=== PATIENT | female | born 1960 | race Caucasian/White ===

== ENCOUNTER 2022-02-09 10:13 | Inpatient (IN) ==
--- NOTE | 2022-01-10 15:37 | PAT Medication Instructions ---
Medication Instructions Date of Service January 10, 2022 Home Medications levothyroxine 25 mcg tablet 25 mcg PO QAM rosuvastatin 5 mg tablet 5 mg PO 3XWK Continue as directed rosuvastatin 5 mg tablet 5 mg PO 3XWK Take morning of surgery With a small sip of water, OTHERWISE NOTHING TO EAT OR DRINK AFTER MIDNIGHT: levothyroxine 25 mcg tablet 25 mcg PO QAM Other Notes If you have any questions please call us at [phone] or [phone] or [phone] or [phone]
--- NOTE | 2022-01-16 09:41 | Anesthesiology Consultation ---
Date of Service January 16, 2022 Assessment & Plan (1) Encounter for pre-operative examination: COVID screening: Per assessment on 01/16: No known COVID-19 positive contacts or current COVID-19 related symptoms. Travel screen negative. At surgeon discretion if preop Covid testing being done. Chart Review Chart Review: Acceptable Risk for Surgery and Patient seen in Pre Admission Testing Teaching & Discussion Pre-Anesthesia Teaching/Discussion Notes: Instructed NPO after midnight before surgery,except medications with 15 cc of water. Medication instructions provided according to the PAT guidelines. History Surgery Operation Date: 02/09/22 10:05 Proposed Procedures p L4-L5 Revision Decompression and Fusion, Spinal Cord Monitoring - Felton Arteaga, Height/Weight Height: 5 ft 2 in Weight: 59.6 kg Allergies Allergy/AdvReac Type Severity Reaction Status Date / Time sumatriptan [From Imitrex] Allergy Severe Anaphylaxis Verified 01/10/22 11:24 Sulfa (Sulfonamide Allergy Intermediate Swelling Verified 01/16/22 08:42 Antibiotics) and "sunburn-like" redness Medications Home Medications Medication Instructions Recorded Confirmed Last Taken levothyroxine 25 mcg tablet 25 mcg PO QAM 01/10/22 01/10/22 Unknown rosuvastatin 5 mg tablet 5 mg PO 3XWK 01/10/22 01/10/22 Unknown Past Medical History Medical History (Updated 01/16/22 @ 09:53 by Shanelle Jay) Crohns disease Stable Hyperlipidemia Hypothyroidism Ocular migraine Tinnitus of right ear Exercise / Class Metabolic Activity II 4-5 Yardwork/Stairs/Walk up hill Past Family History Family History Other No family history of adverse response to anesthesia Past Surgical History Surgical History History of bilateral tubal ligation History of colonoscopy History of esophagogastroduodenoscopy (EGD) History of foot surgery left--cyst removal History of fusion of cervical spine normal ROM per pt History of lumbar surgery bone spur removal History of toe surgery left foot big toe joint surgery (+ hardware) History of wisdom tooth extraction Past Anesthesia History No Hx of Anesthesia Complications and No Family Hx of Anesthesia Complications History of PONV No Hx of PONV and Hx of Motion Sickness (Mild) Social History Smoking Status: Never smoker Do You Dip or Chew Tobacco: No Hx Alcohol Use: No Hx Substance Use: No substance use type: does not use Review of Systems Rare palpitations (hx PVCs/PACs noted on holter monitor). Patient denies chest pain, shortness of breath, dyspnea on exertion, reflux, cough, wheezing. Physical Exam Vital Signs VITALS BP 152/75 P 79 TEMP 98.1 SP02 99%RA RESP 16 PHYSICAL Full cervical extension range of motion. Full TMJ range of motion. TMD 4 finger breaths Mallampati Score 2 Dentition: missing molars/side Lungs: clear throughout to auscultation Cardiac: regular rate and rhythm, no murmurs noted Spine: normal Carotid arteries: negative bruit Extremities: no edema Lab Results Anesthesia Preop Results Results Anesthesia Widget: WBC 5.36 K/ul (4.8-10.8) 01/16/22 Hgb 13.9 g/dl (12.0-16.0) 01/16/22 Hct 40.6 % (34.1-44.9) 01/16/22 Plt 335 K/uL (130-400) 01/16/22 Na 139 mmol/L (136-145) 01/16/22 K 4.3 mmol/L (3.5-5.1) 01/16/22 Cl 102 mmol/L (98-107) 01/16/22 CO2 29 mmol/L (21-32) 01/16/22 BUN 13 mg/dl (6-23) 01/16/22 Creat 0.65 mg/dl (0.6-1.2) 01/16/22 Glucose Level 100 mg/dl (70-99(Fasting)) H 01/16/22 PT 10.9 Seconds (9.0-12.0) 01/16/22 PTT 25.7 Seconds (21.0-31.0) 01/16/22 INR 1.0 (0.9-1.1) 01/16/22 Urine Color Yellow 01/16/22 Urine Appearance Clear (Clear) 01/16/22 Urine pH 5.0 (4.5-7.5) 01/16/22 Urine Specific [place] 1.006 (1.000-1.030) 01/16/22 Urine Protein Negative (Negative) 01/16/22 Urine Glucose (UA) Negative (Negative) 01/16/22 Urine Ketones Negative (Negative) 01/16/22 Urine Blood Negative (Negative) 01/16/22 Urine Nitrite Negative (Negative) 01/16/22 Urine Bilirubin Negative (Negative) 01/16/22 Urine Urobilinogen Negative (Negative) 01/16/22 Urine Leukocyte Esterase Negative (Negative) 01/16/22 Blood Type A Positive 01/16/22 Antibody Screen NEGATIVE 01/16/22 Testing Electrocardiogram Date: 01/16/22 NSR at 67bpm. LAD. Chest X-Ray Date: 01/16/22 FINDINGS: Cardiomediastinal and hilar silhouettes are within normal limits. No pneumothorax, pleural effusion, airspace consolidation or overt pulmonary edema. Degenerative changes of the shoulders and spine. Upper thoracic levoscoliosis. Cervical spinal fusion hardware. IMPRESSION: No acute process. Stress Test Date: 06/04/17 Stress EKG/echo negative for myocardial ischemia at 108% MPHR. 7 METS. Rest echo EF 55%. COVID-19 Risk Screen Screening Information COVID-19 Screen Date: 01/16/22 Exposure 21 Days Family/Household +COVID Last 21 Days: No Exposure 10 Days Any COVID Exposure Last 10 Days: No Symptoms Last 10 Days Experienced COVID Sx Last 10 Days: No + COVID 0-90 Days COVID + in Last 0-90 Days: No
[~2022-02-09 10:13] MED LIST: ACETAMINOPHEN 500 MG TAB PO SCH; GABAPENTIN 600 MG DOSE PO SCH; LR 15ML/HR IV SCH; ceFAZolin 2000MG 2,000 MG/15 ML SYR IV SCH
[2022-02-09] MEDS ORDERED: ROCURONIUM BROMIDE 10 MG/ML 5 ML VIAL IV ONE (10:42)
[2022-02-09] MEDS ORDERED: fentaNYL citrate 100 MCG/2 ML VIAL ONE (10:42)
[2022-02-09] MEDS ORDERED: HYDROmorphone INJ 2 MG/ML SYR/VIAL ONE (10:42)
[2022-02-09] MEDS ORDERED: LIDOCAINE 2% MPF LOCAL 5 ML VIAL INFIL ONE (10:42)
[2022-02-09] MEDS ORDERED: MIDAZOLAM HCL 1 MG/ML 2ML VIAL ONE (10:42)
[2022-02-09] MEDS ORDERED: PROPOFOL IV EMULSION 10 MG/ML 20 ML VIAL IV ONE (10:42)
[2022-02-09] MEDS ORDERED: DEXAMETHASONE SOD INJ 4 MG/ML VIAL ONE (10:42)
[2022-02-09] MEDS ORDERED: ONDANSETRON INJ 2 MG/ML 2 ML VIAL ONE (10:42)
[2022-02-09] MEDS ORDERED: ATROPINE SULFATE 0.1 MG/ML 10ML SYR IV PRN (11:02)
[2022-02-09] MEDS ORDERED: PROMETHAZINE HCL 6.25 MG in SODIUM CHLORIDE 0.9% 50 ML IV PRN (11:02)
[2022-02-09] MEDS ORDERED: ONDANSETRON INJ 2 MG/ML 2 ML VIAL IV PRN ×2 (11:02→16:46)
[2022-02-09] MEDS ORDERED: ePHEDrine sulfate 50 MG/ML AMP IV PRN (11:02)
[2022-02-09] MEDS ORDERED: HYDROmorphone INJ 1 MG/ML SYRINGE IV PRN ×2 (11:02→16:46)
[2022-02-09] MEDS ORDERED: fentaNYL citrate 100 MCG/2 ML VIAL IV PRN (11:02)
--- NOTE | 2022-02-09 11:48 | History & Physical Bridge Note ---
Date of Service February 09, 2022 History & Physical Bridge Note I have examined the patient, reviewed the History & Physical and in the interval since the performance of the History & Physical I have noted the following changes of clinical significance: no changes noted
--- NOTE | 2022-02-09 11:50 | History & Physical Report ---
Date of Service February 09, 2022 Assessment & Plan (1) Neurogenic claudication due to lumbar spinal stenosis: Plan: L4-L5 revision decompression and fusion, possible L3-L4 History of Present Illness Chief Complaint: Back and leg pain Primary Care Provider: Michelle Matthew PA-C This is a 61-year-old female who presents with chronic chest and back and leg pain During such course of nonoperative care is here for surgical invention. Allergies Allergy/AdvReac Type Severity Reaction Status Date / Time sumatriptan [From Imitrex] Allergy Severe Anaphylaxis Verified 02/09/22 10:52 Sulfa (Sulfonamide Allergy Intermediate Swelling Verified 02/09/22 10:52 Antibiotics) and "sunburn-like" redness Home Medications Medication Instructions Recorded Confirmed Type levothyroxine 25 mcg tablet 25 mcg PO QAM 01/10/22 02/09/22 History rosuvastatin 5 mg tablet 5 mg PO 3XWK 01/10/22 02/09/22 History Past Med/Surg History Medical History (Updated 02/09/22 @ 11:49 by Felton Arteaga DO) Crohns disease Stable Hyperlipidemia Hypothyroidism Ocular migraine Tinnitus of right ear Surgical History History of bilateral tubal ligation History of colonoscopy History of esophagogastroduodenoscopy (EGD) History of foot surgery left--cyst removal History of fusion of cervical spine normal ROM per pt History of lumbar surgery bone spur removal History of toe surgery left foot big toe joint surgery (+ hardware) History of wisdom tooth extraction Family History Other No family history of adverse response to anesthesia Social History Smoking Status: Never smoker Second Hand Exposure: No; Do You Dip or Chew Tobacco: No; Tobacco Cessation Education Requested by Patient: No Hx Alcohol Use: No Hx Substance Use: No Preferred Language: Mongolian Communication Ability: Effective Pork Cutlet Maker Required: No Beliefs That Will Affect Care: None Current Living Situation: Spouse Other Information That Helps Us Care for You: No Feels Safe at Home: Yes Safety Concerns: Feels Safe At This Time Assistive Devices: Glasses Physical Exam Physical Exam: Patient is alert and oriented Heart regular rate and rhythm Lungs clear Results & Data Results & Data ([facility]) Vital Signs (Past 12 Hours) Vital Signs Temp Pulse Resp BP Pulse Ox O2 Del Method 02/09/22 10:53 37.3 C 88 20 152/79 H 97 Room Air
[2022-02-09] MEDS ORDERED: ceFAZolin 330 MG/ML 1 GM VIAL ONE (12:05)
[2022-02-09] MEDS ORDERED: BUPIVACAINE/EPINEPHRINE 0.25% 1:200,000 30 ML VIAL ONE (12:05)
[2022-02-09] MEDS ORDERED: SUGAMMADEX SODIUM 200 MG/2 ML VIAL IV ONE (12:59)
[2022-02-09] MEDS ORDERED: GLYCOPYRROLATE 0.2 MG/ML VIAL ONE (13:18)
[2022-02-09] MEDS ORDERED: PHENYLEPHRINE 100MCG/ML 5ML SYR ONE (13:19)
[2022-02-09] MEDS ORDERED: ePHEDrine sulfate 50 MG/ML SYR ONE (13:19)
--- NOTE | 2022-02-09 14:16 | Operative Report ---
Post Operative Report Pre & Post Diagnosis Operation Date: 02/09/22 11:45 Pre-Op Diagnosis: Lumbar spinal stenosis with spondylolisthesis Post-Op Diagnosis: Same I identified the patient and participated in the time-out.: Yes Procedure Operation Date: 02/09/22 11:45 Actual Procedures #1 revision decompression with bilateral medial facetectomies and foraminotomies L3-L4 L4-L5. #2 posterior spinal fusion L3-L4 L4-L5. #3 placement posterior instrumentation L3-L5. #4 interbody fusion L4-L5. #5 placement of Spira 11 x 26 mm cage at L4-5. #6 placement of locally harvested morselized autograft in the posterior gutters. #7 placement of infuse collagen sponge bone mass graft in the posterior lateral gutters and I factor in the interbody space. Surgeon Felton Arteaga, All Terrain Vehicle Technician Ken Saab Estimated Blood Loss 100 Findings Consistent with Post-Op Diagnosis Specimens None Indications This is a 61-year-old female who presents above-mentioned diagnosis and failing since course of nonoperative care she is here for surgical invention. Description of Procedure Patient was met with identified informed consent obtained. Patient was then taken to the operative suite underwent a patient placed in a prone position on the [place] table top Nicolas frame. Bony prominences well-padded eyes inspected to ensure no external pressure placed upon the. This point lumbar spine was prepped and draped in a sterile fashion. Sharp dissection with assistance of bradycardia from down to and exposing the remaining lamina and transverse processes of L3 L4-5 bilaterally. From caudal to cephalad fashion revision complete laminectomy of L4 and L3 was performed addressing severe spinal stenosis and subarticular disease. Pedicle screws then placed at L3 L4-5 bilaterally with assistance of fluoroscopy and appropriately sized linsey placed. By way the transforaminal approach on the right complete discectomy of L4-L5 was performed endplates curetted to subcortical being bone and a 11 x 26 mm Spira cage filled with I factor tapped in position. The rods then locked in final p osition bilaterally. The transverse processes of L3 L4-5 burred to subcortical bleeding bone. Infuse collagen sponge bone mass graft locally harvested morselized autograft was placed in the posterior gutters. 15 round LESLY drain inserted. The incision was then closed with 1 Vicryl the fascia 2-0 Vicryl subcutaneously and 4 Monocryl for fascial closure. Steri-Strips dressing placed. Patient awakened and taken to PACU stable condition. Please note spinal cord monitoring was utilized at the procedure no changes noted. Lastly Ken Saab was present throughout the entire procedure and while the patient positioning complex portion of the surgery and final skin closure. I attest to the content of the Intraoperative Record and any orders documented therein. Any exceptions are noted below.
--- NOTE | 2022-02-09 14:22 | Fluoroscopy Report ---
FL lumbar spine 2-3V CLINICAL HISTORY: L4-L5 REVISION DECOMPRESSION AND FUSION COMPARISON STUDY: None. FLUOROSCOPY TIME: 22 seconds. FINDINGS: 2 fluoroscopic spot images of the lumbar spine demonstrate posterior decompression and fusi on from L3 through L5 with pedicle screws and rods. The hardware appears intact. L4-5 disc spacer is in place. There is a small pledget adjacent to the L4-5 disc space of which the surgeon is aware. IMPRESSION: Fluoroscopic assistance provided for L3-L5 posterior decompression and fusion. ACT 112: Negative or not required by law. Electronically signed by: Maksim Manriquez M.D. 02/09/2022 2:20 PM
--- NOTE | 2022-02-09 16:40 | Anesthesiology Progress Note ---
Date of Service February 09, 2022 Anesthesia Post Procedure Vital Signs Vital Signs: Temp Pulse Pulse Resp BP Pulse Ox O2 Del Method 02/09/22 15:40 36.7 C 79 20 127/71 99 Room Air 02/09/22 16:00 36.7 C 85 17 137/64 94 Room Air 02/09/22 15:50 36.7 C 94 H 17 129/80 97 Room Air 02/09/22 15:30 36.7 C 74 13 120/67 100 Room Air 02/09/22 15:20 90 16 121/78 100 Oxymask 02/09/22 15:00 96 H 18 134/67 100 Oxymask 02/09/22 15:10 90 16 134/73 100 Oxymask 02/09/22 14:50 81 12 136/73 98 Oxymask 02/09/22 14:41 36.0 C L 100 H 14 128/85 99 Oxymask 02/09/22 10:53 37.3 C 88 20 152/79 H 97 Room Air O2 Flow Rate 02/09/22 15:40 02/09/22 16:00 02/09/22 15:50 02/09/22 15:30 02/09/22 15:20 2 02/09/22 15:00 4 02/09/22 15:10 3 02/09/22 14:50 4 02/09/22 14:41 5 02/09/22 10:53 Pain Intensity Medial Back: Pain Intensity: 4 Transfer of Care Handoff Completed per policy Notes Mental Status: alert / awake / arousable and participated in evaluation Patient Amnestic to Procedure: Yes Nausea / Vomiting: adequately controlled Pain: adequately controlled Airway Patency, RR, SpO2: stable & adequate BP & HR: stable & adequate Hydration State: stable & adequate Anesthetic Complications: no major complications apparent
[2022-02-09] MEDS ORDERED: ALUMINUM/MAGNESIUM SUSP 30 ML UDC PO PRN (16:46)
[2022-02-09] MEDS ORDERED: traMADol HCL 50 MG TABLET PO PRN (16:46)
[2022-02-09] MEDS ORDERED: LORazepam 0.5 MG in SYRINGE 0 ML IV PRN (16:46)
[2022-02-09] MEDS ORDERED: NALOXONE HCL 0.4 MG/1 ML VIAL/CARP IV PRN (16:46)
[2022-02-09] MEDS ORDERED: DO NOT ADMINISTER FLU VACCINE PRN (16:46)
[2022-02-09] MEDS ORDERED: PROMETHAZINE HCL 12.5 MG in SODIUM CHLORIDE 0.9% 50 ML IV PRN (16:46)
[2022-02-09] MEDS ORDERED: hydrOXYzine HCl 25 MG TAB PO PRN (16:46)
[2022-02-09] MEDS ORDERED: METOCLOPRAMIDE HCL INJ 5 MG/ML 2 ML VIAL IV PRN (16:46)
[2022-02-09] MEDS ORDERED: FAMOTIDINE 20 MG TAB PO PRN (16:46)
[2022-02-09] MEDS ORDERED: diphenhydrAMINE Capsule 25 MG CAP PO PRN (16:46)
[2022-02-09] MEDS ORDERED: SOD PHOSPHATE/SOD BIPHOSPHATE ENEMA 132 ML BTL PR PRN (16:46)
[2022-02-09] MEDS ORDERED: HYDROmorphone INJ 0.5 MG/0.5 ML SYR IV PRN (16:46)
[2022-02-09] MEDS ORDERED: DO NOT ADMINISTER PNEUMOCOCCAL VACCINE PRN (16:46)
[2022-02-09] MEDS ORDERED: bisacodyL 10 MG SUPP PR PRN (16:46)
[2022-02-09] MEDS ORDERED: LORazepam 0.5 MG TAB PO PRN (16:46)
[2022-02-09] MEDS ORDERED: MAGNESIUM HYDROXIDE SUSP 30 ML UDC PO PRN (16:46)
[2022-02-09] MEDS ORDERED: ONDANSETRON 4 MG OD TAB PO PRN (16:46)
[2022-02-09] MEDS ORDERED: ACETAMINOPHEN 1,000 MG/100 ML VIAL IV PRN (16:46)
[2022-02-09] MEDS ORDERED: ACETAMINOPHEN 500 MG TAB PO PRN (16:46)
[2022-02-09] MEDS: oxyCODONE HCL IR 5 MG TAB (IMMEDIATE RELEASE) PO PRN (18:23)
[2022-02-09] MEDS: LACTATED RINGER'S 1,000 ML IV SCH (18:23)
--- NOTE | 2022-02-09 18:32 | Hospitalist Consultation ---
Date of Consultation February 09, 2022 Assessment & Plan (1) Neurogenic claudication due to lumbar spinal stenosis: 02/09/22 L4-L5 Revision Decompression and Fusion, Spinal Cord Monitoring Surgeon: Felton Arteaga given intra operative steroids (2) Hypothyroidism: synthroid 25 mcg a day (3) Hyperlipidemia: rosuvastatin 5 mg three times a week Plan Patient is very stable postoperatively do not anticipate any significant medical issues the patient's labs are stable on 02/10 will likely medically sign off History of Present Illness Attending Physician: Felton Arteaga, DO History of Present Illness 62 F with L4-5 decompression and fusion, she typically has back pain that rad iates down right leg, no other physical issues Doing well post op pain in good control, no shortness of breath. Allergies Allergy/AdvReac Type Severity Reaction Status Date / Time sumatriptan [From Imitrex] Allergy Severe Anaphylaxis Verified 02/09/22 10:52 Sulfa (Sulfonamide Allergy Intermediate Swelling Verified 02/09/22 10:52 Antibiotics) and "sunburn-like" redness Home Medications Medication Instructions Recorded Confirmed Type levothyroxine 25 mcg tablet 25 mcg PO QAM 01/10/22 02/09/22 History rosuvastatin 5 mg tablet 5 mg PO 3XWK 01/10/22 02/09/22 History Patient History Medical History (Updated 02/09/22 @ 18:29 by Nir Cruz MD) Crohns disease Stable Hyperlipidemia Hypothyroidism Ocular migraine Tinnitus of right ear Surgical History History of bilateral tubal ligation History of colonoscopy History of esophagogastroduodenoscopy (EGD) History of foot surgery left--cyst removal History of fusion of cervical spine normal ROM per pt History of lumbar surgery bone spur removal History of toe surgery left foot big toe joint surgery (+ hardware) History of wisdom tooth extraction Family History Other No family history of adverse response to anesthesia Social History Smoking Status: Never smoker Second Hand Exposure: No; Do You Dip or Chew Tobacco: No; Tobacco Cessation Education Requested by Patient: No Hx Alcohol Use: No Hx Substance Use: No Preferred Language: Chinese Communication Ability: Effective Automotive Quality Manager Required: No Beliefs That Will Affect Care: None Current Living Situation: Spouse Other Information That Helps Us Care for You: No Feels Safe at Home: Yes Safety Concerns: Feels Safe At This Time Assistive Devices: Glasses Review of Systems Review of Systems: Mild distress and fatigue no headache, no visual changes no speech or swallowing issues no chest pain, pressure or palpitations no shortness of breath, cough or wheezes no abdominal pain, nausea or vomiting, diarrhea or constipation no dysuria, hematuria or frequency no focal joint pain or swelling post operative back pain typical and improved from pre surgery no bruising, bleeding or rashes no focal signs of weakness or numbness or altered sensation no complaints of anxiety or depression.. Physical Exam Physical Exam: The patient appeared well nourished and normally developed. Vital signs as documented. Head exam is normocephalic atraumatic Neck is without JVD, thyromegaly, or carotid bruits. Lungs are clear to auscultation, no focal loss of breath sounds Cardiac exam, Rhythm is regular.. No murmurs, rubs or gallops. Abdominal exam reveals normal bowel sounds, soft non tender, no masses Extremities are nonedematous and both pedal pulses are present Neurologic exam is alert and oriented, good distal sensation to feet Skin is without bruises or rashes Psychologically is without concerns for anxiety or depression.. Results & Data Results & Data ([facility]) Vital Signs (Past 12 Hours) Vital Signs Temp Pulse Pulse Resp BP Pulse Ox O2 Del Method 02/09/22 18:17 97.7 F 88 16 123/76 98 Nasal Cannula 02/09/22 17:20 98.4 F 93 H 16 117/73 99 Nasal Cannula 02/09/22 16:30 98.1 F 93 H 20 113/61 100 Room Air 02/09/22 15:40 98.1 F 79 20 127/71 99 Room Air 02/09/22 16:00 98.1 F 85 17 137/64 94 Room Air 02/09/22 15:50 98.1 F 94 H 17 129/80 97 Room Air 02/09/22 15:30 98.1 F 74 13 120/67 100 Room Air 02/09/22 15:20 90 16 121/78 100 Oxymask 02/09/22 15:00 96 H 18 134/67 100 Oxymask 02/09/22 15:10 90 16 134/73 100 Oxymask 02/09/22 14:50 81 12 136/73 98 Oxymask 02/09/22 14:41 96.8 F L 100 H 14 128/85 99 Oxymask 02/09/22 10:53 99.1 F 88 20 152/79 H 97 Room Air O2 Flow Rate 02/09/22 18:17 1 02/09/22 17:20 2 02/09/22 16:30 02/09/22 15:40 02/09/22 16:00 02/09/22 15:50 02/09/22 15:30 02/09/22 15:20 2 02/09/22 15:00 4 02/09/22 15:10 3 02/09/22 14:50 4 02/09/22 14:41 5 02/09/22 10:53 PG Care Time/CCT Total # of Minutes Spent Total Time Spent with Patient: Total time spent is greater than 50% in coordination of care (as documented) at patient's floor/unit and/or counseling patient: Coding Level of Care Code 94089 Inpt Consult Level 2 Diagnoses Neurogenic claudication due to lumbar spinal stenosis M48.062 Hypothyroidism E03.9 Hyperlipidemia E78.5
[2022-02-09] MEDS: DOCUSATE SODIUM/SENNA 50/8.6MG TAB PO SCH (21:17)
[2022-02-09] MEDS: ceFAZolin 1000MG 1,000 MG/7.5 ML SYR IV SCH (21:17)
[2022-02-10] MEDS: oxyCODONE HCL IR 5 MG TAB (IMMEDIATE RELEASE) PO PRN ×3 (01:48→20:26)
[2022-02-10] MEDS: ceFAZolin 1000MG 1,000 MG/7.5 ML SYR IV SCH (03:07)
[2022-02-10] MEDS: LACTATED RINGER'S 1,000 ML IV SCH (03:08)
[2022-02-10] MEDS: POLYETHYLENE (MIRALAX) 17 GM PACK PO SCH ×2 (04:51→12:48)
[2022-02-10] MEDS: LEVOTHYROXINE SODIUM 25 MCG TABLET PO SCH (04:51)
[2022-02-10] MEDS: dexAMETHasone 6 MG in SYRINGE 0 ML IV SCH (08:23)
[2022-02-10 08:37] LABS: Basophils # (auto) 0.02 K/uL (0-0.2); Basophils % (auto) 0.2 %; Hematocrit (blood only) 31.9 % (34.1-44.9); Hemoglobin 10.9 g/dl (12.0-16.0); Immature Granulocytes # (auto) 0.06 K/uL (0.00-0.02); Immature Granulocytes % (auto) 0.5 %; Lymphocytes # (auto) 1.89 K/uL (1.2-3.4); Lymphocytes % (auto) 16.7 %; Mean Corpuscular Hemoglobin 31.2 pg (25.0-34.0); Mean Corpuscular Hgb Conc 34.2 g/dL (32.0-36.0); Mean Corpuscular Volume 91.4 fL (80.0-100.0); Mean Platelet Volume 8.7 fL (9.4-12.3); Monocytes # (auto) 0.95 K/uL (0.24-0.82); Monocytes % (auto) 8.4 %; Neutrophils # (auto) 8.39 K/uL (1.4-6.5); Neutrophils % (auto) 74.2 %; Platelet Count 256 K/uL (130-400); RDW Coefficient of Variation 12.1 % (11.5-14.5); RDW Standard Deviation 40.6 fL (36.4-46.3); Red Blood Count 3.49 M/uL (3.93-5.22); White Blood Count 11.31 K/ul (4.8-10.8)
[2022-02-10 08:57] LABS: BUN Creatinine Ratio 19.4 (10-20); Calcium 8.7 mg/dl (8.5-10.1); Creatinine Clr Calc Pharmacy 73.5 ml/min; Est GFR (African American) 111.2 ml/min
--- NOTE | 2022-02-10 09:13 | Hospitalist Progress Note ---
Date of Service February 10, 2022 Assessment & Plan (1) Neurogenic claudication due to lumbar spinal stenosis: Plan: POD# 1 s/p #1 revision decompression with bilateral medial facetectomies and foraminotomies L3-L4 L4-L5. #2 posterior spinal fusion L3-L4 L4-L5. #3 p lacement posterior instrumentation L3-L5. #4 interbody fusion L4-L5. #5 placement of Spira 11 x 26 mm cage at L4-5. #6 placement of locally harvested morselized autograft in the posterior gutters. #7 placement of infuse collagen sponge bone mass graft in the posterior lateral gutters and I factor in the interbody space. Decadron IV by primary service, likely cause of leukocytosis. Afebrile H/h 13.9/40.6 --> 10.9/31.9 -- acute blood loss anemia from surgery as well as dilutional from IVF. EBL 100cc. LESLY output 145cc + 22cc Pain control/bowel regimen/pain control per primary service -- passing gas, no BM. Pain currently 5/10 and tolerating w/ ordered medications PT/OT consulted Dispo per primary service Patient w/ Na 132 on labs, does not appear overloaded, slightly dry on exam, r eported lightheadedness/dizziness, no murmur on exam. Pushing water, but will have nursing check orthostatic VS/nss @ 80cc/hr for 500cc and repeat BMP (2) Hypothyroidism: Plan: synthroid 25 mcg a day Will check TSH given hyponatremia on labs -- WNL 2.3 Of note, has hx PAC/PVC on holter monitor -- declined BB due to infrequency of symptoms per PCP note and per discussion with patient this was BEFORE she was placed on Synthroid (3) Hyperlipidemia: Plan: rosuvastatin 5 mg three times a week (4) Hyponatremia: Plan: Na 132 on AM labs, Glu 114 Had been given steroids, but does look a little dehydrated on exam TSH wnl Give 500cc NSS and If no change/worsened on repeat BMP, check urine Na/osm (5) Vitamin D deficiency: Plan: checked given hypercalcemia on pre-op labs (8.7 today), low 26.4 placed on 1000IU daily for AM, would continue at d/c Plan 500cc NSS for dehydration/lightheadedness/Na 132. TSH wnl. Repeat BMP in AM, obtain urine studies if still hyponatremic Hospitalist service will follow along for repeat labs. If stable/improved and without any further lightheadedness/dizziness, hospitalist service can sign off tomorrow. Please reach out with any questions/concerns. Admission and Anticipated Discharge Date Admission Date: February 09, 2022 Supervising Physician Co-Signing Physician Notes PA Supervision Note: I did not personally see or examine the patient today, but I verified all retana points of FRANCISCO Manzo's assessment and plan with the following exceptions/additions: None Subjective Eval this morning, doing well. Up in chair, had worked with therapy this morning. She does note she had a little lightheadedness this morning with standing, BP slightly low/Na 132. She does note has had her TSH checked in past three months, but repeating. Hx PAC/PVC discussed, but that was before she started on her synthroid, which she takes at 4am on empty stomach at home. Pain controlled, reported 5/10 to lower back. Leg/groin symptoms resolved and strength testing equal. Seen by Dr Arteaga this morning and she was hopeful maybe d/c tomorrow but she notes he didn't say either way. Passing gas but no Bm, got sennakot this Am which should help. She denies any issues with urination and notes she had been urinating a lot overnight, no dysruia/burning. Questions/concerns addressed. Will repeat labs in AM, TSH w/ labs from today and if stable on repeat discussed patient may not need seen by medicine service but to alert nursing of any more issues with lightheadedness throughout the day. Will have them check orthostatin VS. Will give 500cc NSS @ 80cc/hr and repeat labs in AM given does look slightly dehydrated on exam. Review of Systems Review of Systems: All systems reviewed & are unremarkable except as noted in HPI & below Physical Exam Physical Exam: General: WD/WN female sitting up in bed, NAD HEENT: head normocephalic, atraumatic, mm slightly dry, trachea midline without deviation Resp: CTAB, no w/c, on room air 95% CV: RRR, no obvious m/r/g, no pitting edema/calf tenderness, pulses palpable GI: +BS, soft/NT : no dai MSK/Neuro: dressing to lumbar spine c/d/i, appropriately tender to palpation, drain w/ scant blood drainage, NVI, pulses palpable, equal strength dorsiflexion/plantar flexion Psych: AOx3, pleasant and cooperative Skin: warm, dry Results & Data Results & Data ([facility]) Vital Signs (Past 12 Hours) Vital Signs Temp Pulse Resp BP BP Pulse Ox O2 Del Method 02/10/22 07:33 36.7 C 70 16 100/61 98 Room Air 02/10/22 03:49 36.8 C 71 16 91/56 L 97 Room Air 02/10/22 03:11 36.8 C 65 16 97/57 L 98 Room Air 02/09/22 23:37 36.6 C 72 18 109/65 96 Room Air Laboratory Results 02/10/22 02/10/22 02/10/22 Range/Units 09:24 09:24 08:00 WBC (4.8-10.8) K/ul RBC (3.93-5.22) M/uL Hgb (12.0-16.0) g/dl Hct (34.1-44.9) % MCV (80.0-100.0) fL MCH (25.0-34.0) pg MCHC (32.0-36.0) g/dL RDW Std Deviation (36.4-46.3) fL RDW Coeff of Flower (11.5-14.5) % Plt Count (130-400) K/uL MPV (9.4-12.3) fL Immature Gran % (Auto) % Neut % (Auto) % Lymph % (Auto) % Garza % (Auto) % Eos % (Auto) % Baso % (Auto) % Neut # (Auto) (1.4-6.5) K/uL Lymph # (Auto) (1.2-3.4) K/uL Garza # (Auto) (0.24-0.82) K/uL Eos # (Auto) (0-0.50) K/uL Baso # (Auto) (0-0.2) K/uL Immature Gran # (Auto) (0.00-0.02) K/uL Sodium (136-145) mmol/L Potassium (3.5-5.1) mmol/L Chloride (98-107) mmol/L Carbon Dioxide (21-32) mmol/L Anion Gap (3-11) BUN (6-23) mg/dl Creatinine (0.6-1.2) mg/dl Est Cr Clr Drug Dosing ml/min Est GFR ( Amer) ml/min Est GFR (Non-Af Amer) ml/min BUN/Creatinine Ratio (10-20) Glucose (70-99(Fasting)) mg/dl Calcium (8.5-10.1) mg/dl 25-OH Vitamin D Total Pending TSH 2.319 (0.300-4.500) uIu/ml Hepatitis C Ab (EIA) Pending Hep C Ab Signal/Cutoff Pending SARS-CoV-2, RNA, NAAT (NEGATIVE) 02/10/22 02/10/22 02/09/22 Range/Units 08:00 08:00 10:45 WBC 11.31 H (4.8-10.8) K/ul RBC 3.49 L (3.93-5.22) M/uL Hgb 10.9 L (12.0-16.0) g/dl Hct 31.9 L (34.1-44.9) % MCV 91.4 (80.0-100.0) fL MCH 31.2 (25.0-34.0) pg MCHC 34.2 (32.0-36.0) g/dL RDW Std Deviation 40.6 (36.4-46.3) fL RDW Coeff of Flower 12.1 (11.5-14.5) % Plt Count 256 (130-400) K/uL MPV 8.7 L (9.4-12.3) fL Immature Gran % (Auto) 0.5 % Neut % (Auto) 74.2 % Lymph % (Auto) 16.7 % Garza % (Auto) 8.4 % Eos % (Auto) 0.0 % Baso % (Auto) 0.2 % Neut # (Auto) 8.39 H (1.4-6.5) K/uL Lymph # (Auto) 1.89 (1.2-3.4) K/uL Garza # (Auto) 0.95 H (0.24-0.82) K/uL Eos # (Auto) 0.00 (0-0.50) K/uL Baso # (Auto) 0.02 (0-0.2) K/uL Immature Gran # (Auto) 0.06 H (0.00-0.02) K/uL Sodium 132 L (136-145) mmol/L Potassium 4.0 (3.5-5.1) mmol/L Chloride 98 (98-107) mmol/L Carbon Dioxide 29 (21-32) mmol/L Anion Gap 5 (3-11) BUN 12 (6-23) mg/dl Creatinine 0.62 (0.6-1.2) mg/dl Est Cr Clr Drug Dosing 73.5 ml/min Est GFR ( Amer) 111.2 ml/min Est GFR (Non-Af Amer) 96.0 ml/min BUN/Creatinine Ratio 19.4 (10-20) Glucose 114 H (70-99(Fasting)) mg/dl Calcium 8.7 (8.5-10.1) mg/dl 25-OH Vitamin D Total TSH (0.300-4.500) uIu/ml Hepatitis C Ab (EIA) Hep C Ab Signal/Cutoff SARS-CoV-2, RNA, NAAT NEGATIVE (NEGATIVE) Diagnostic Findings Lumbar Spine X-Ray 02/09/22 11:45 FL lumbar spine 2-3V CLINICAL HISTORY: L4-L5 REVISION DECOMPRESSION AND FUSION COMPARISON STUDY: None. FLUOROSCOPY TIME: 22 seconds. FINDINGS: 2 fluoroscopic spot images of the lumbar spine demonstrate posterior decompression and fusion from L3 through L5 with pedicle screws and rods. The hardware appears intact. L4-[address] There is a small pledget adjacent to the L4-5 disc space of which the surgeon is aware. IMPRESSION: Fluoroscopic assistance provided for L3-L5 posterior decompression and fusion. ACT 112: Negative or not required by law. Electronically signed by: Maksim Manriquez M.D. 02/09/2022 2:20 PM PG Care Time/CCT Total # of Minutes Spent Total Time Spent with Patient: Total time spent is greater than 50% in coordination of care (as documented) at patient's floor/unit and/or counseling patient: Coding Level of Care Code 34509 Subseq Hosp Care Lvl 2 Diagnoses Neurogenic claudication due to lumbar spinal stenosis M48.062 Hypothyroidism E03.9 Hyperlipidemia E78.5 Hyponatremia E87.1 Vitamin D deficiency E55.9
--- NOTE | 2022-02-10 10:25 | Orthopedic Progress Note ---
Date of Service February 10, 2022 Assessment & Plan (1) Neurogenic claudication due to lumbar spinal stenosis: Plan: At this time continue physical therapy monitor LESLY operatively discharge home in the next few days. Admission and Anticipated Discharge Date Admission Date: February 09, 2022 Subjective Patient's back pain is controlled leg symptoms improved Physical Exam Physical Exam: Patient is walking the halls with therapy. She is comfortable. Scheduled to testing. Results & Data ([facility]) Vital Signs (Past 12 Hours) Vital Signs Temp Pulse Resp BP BP Pulse Ox O2 Del Method 02/10/22 07:33 36.7 C 70 16 100/61 98 Room Air 02/10/22 03:49 36.8 C 71 16 91/56 L 97 Room Air 02/10/22 03:11 36.8 C 65 16 97/57 L 98 Room Air 02/09/22 23:37 36.6 C 72 18 109/65 96 Room Air
[2022-02-10] MEDS ORDERED: SODIUM CHLORIDE 0.9% 500 ML IV SCH (10:30)
[2022-02-10] MEDS: DOCUSATE SODIUM/SENNA 50/8.6MG TAB PO SCH (20:25)
[2022-02-11] MEDS: LEVOTHYROXINE SODIUM 25 MCG TABLET PO SCH (05:17)
[2022-02-11 06:23] LABS: Hematocrit (blood only) 31.8 % (34.1-44.9); Hemoglobin 10.8 g/dl (12.0-16.0); Mean Corpuscular Hemoglobin 30.9 pg (25.0-34.0); Mean Corpuscular Volume 91.1 fL (80.0-100.0); Platelet Count 250 K/uL (130-400); RDW Coefficient of Variation 12.7 % (11.5-14.5); RDW Standard Deviation 42.1 fL (36.4-46.3); Red Blood Count 3.49 M/uL (3.93-5.22); White Blood Count 8.81 K/ul (4.8-10.8)
[2022-02-11 06:55] LABS: BUN Creatinine Ratio 24.6 (10-20); Calcium 8.5 mg/dl (8.5-10.1); Creatinine Clr Calc Pharmacy 79.9 ml/min; Est GFR (African American) 114.3 ml/min; Est GFR (Non-African American) 98.7 ml/min; Magnesium 1.9 mg/dl (1.7-2.4); Potassium 3.9 mmol/L (3.5-5.1)
[2022-02-11] MEDS: oxyCODONE HCL IR 5 MG TAB (IMMEDIATE RELEASE) PO PRN (08:45)
[2022-02-11] MEDS: dexAMETHasone 6 MG in SYRINGE 0 ML IV SCH (08:45)
[2022-02-11] MEDS: CHOLECALCIFEROL 1,000 UNITS 25 MCG TAB PO SCH (08:45)
--- NOTE | 2022-02-11 09:23 | Communication Note ---
Date of Service: February 11, 2022 Reviewed patient labs from this morning, Na back to normal at 137. Hgb stable on repeat. Did send rx for Vitamin D Encouraged cautious use of tramadol at d/c with hyponatremia. Messaged Dr Arteaga based on labs w/ improvement and no further lightheadedness/dizziness and can be discharged from medicine standpoint. Please call with any questions/concerns. Hospitalist service signed off at this time.
--- NOTE | 2022-02-11 11:22 | Orthopedic Progress Note ---
Date of Service February 11, 2022 Assessment & Plan (1) Neurogenic claudication due to lumbar spinal stenosis: Plan: Continue with physical therapy ambulation as tolerated plan for discharge home tomorrow. Admission and Anticipated Discharge Date Admission Date: February 09, 2022 Subjective Patient back pain is controlled leg symptoms markedly improved Physical Exam Physical Exam: Patient is comfortable discussing the testing. Results & Data ([facility]) Vital Signs (Past 12 Hours) Vital Signs Temp Pulse Resp BP Pulse Ox O2 Del Method 02/11/22 08:00 36.6 C 78 16 108/64 100 Room Air
[2022-02-11] MEDS: DOCUSATE SODIUM/SENNA 50/8.6MG TAB PO SCH (21:05)
[2022-02-12] MEDS: LEVOTHYROXINE SODIUM 25 MCG TABLET PO SCH (04:44)
[2022-02-12] MEDS: CHOLECALCIFEROL 1,000 UNITS 25 MCG TAB PO SCH (08:44)
[2022-02-12] MEDS: dexAMETHasone 6 MG in SYRINGE 0 ML IV SCH (08:44)
[2022-02-12] MEDS ORDERED: ROSUVASTATIN CALCIUM 5 MG TAB PO SCH (09:00)
--- NOTE | 2022-02-12 09:30 | Discharge Summary ---
Date of Service February 12, 2022 Admission HPI Per Admitting Provider This is a 61-year-old female who presents with chronic chest and back and leg pain During such course of nonoperative care is here for surgical invention. Principal Diagnosis Lumbar spinal stenosis with neurogenic claudication Discharge Data Allergies Allergy/AdvReac Type Severity Reaction Status Date / Time sumatriptan [From Imitrex] Allergy Severe Anaphylaxis Verified 02/09/22 10:52 Sulfa (Sulfonamide Allergy Intermediate Swelling Verified 02/09/22 10:52 Antibiotics) and "sunburn-like" redness Consultations 02/09/22 16:46 Consult Hospitalist Routine Procedures Performed Operation Date: 02/09/22 11:45 Actual Procedures p L4-L5 Revision Decompression and Fusion, Spinal Cord Monitoring(Not Applica ble) - Felton Arteaga DO Ordered Studies 02/09/22 11:45 FL lumbar spine 2-3V Routine Hospital Course (1) Neurogenic claudication due to lumbar spinal stenosis: Patient with lumbar decompression fusion tolerated this well was taken to orthopedic for postoperative. Postop day 1 she was up and ambulating. Postop day 2 postoperative 3 pain is well controlled extra strength testing. Socially discharged home. Discharge orders instructions on the chart for further view. Total Time Total Time Spent Total Time Spent (In Minutes): 20 minutes Discharge Plan Discharge Items Patient Disposition: Home - Self-Care Reason For Visit: Radiculopathy, Lumbar Region Discharge Diagnosis: Lumbar spinal stenosis with radiculopathy Activity: As commented below Non-emergency contact: Primary Care Provider Call non-emergency contact if: you have any medication questions Follow-up/Referrals: Michelle Matthew PA-C [Primary Care Provider] - Diet: Regular Addtl Attending Provider Instructions: ACTIVITY RECOMMENDATIONS: SELF CARE INSTRUCTIONS AFTER THORACIC/LUMBAR FUSIONS 1. You may walk to your tolerance. It is good exercise for your legs and back. Expect some back and intermittent leg aches and pains. 2. You may perform "counter-top" level activities (make a sandwich, josefina with a project, etc.). 3. No bending or lifting of more than 10 pounds or back twisting of any nature (roll like a log when turning in bed). 4. You may ride in a car for 20-30 minutes at a time. No driving until after your first visit with your doctor. 5. Frequent changes of position and restricting sitting to 30 minutes at a time will help limit the amount of back spasms and stiffness you may experience. 6. You may discontinue the use of ambulatory aids (cane, crutches, etc.) once your strength and confidence allow. 7. You may biology adjunct instructor the shower and let water strike your incision when you arrive home at least once daily. Do not take a tub bath, sit in a hot tub or g o into a swimming pool until after your first recheck in the office. SPECIAL CARE INSTRUCTIONS: VERY IMPORTANT TO READ AND REVIEW A. Your surgical incision has been closed with a cosmetic suture under the skin that will dissolve in about 6 weeks. In 14 days, you can use a pair of clean scissors and cut the suture that is left outside of the skin at the ends of your incision. 1. The small skin tapes can be removed 7 days after surgery if they have not fallen off by that point. 2. You may keep the wound open to air as much as possible to promote healing after post-op day number 5 unless told otherwise by your doctor. 3. If you think the wound looks like it is becoming infected (redness or worsening drainage) and/or you are experiencing fever, chill or worsening back pain and muscle spasms, contact the office so that we may evaluate you as soon as possible. B. Complications are uncommon, but please contact us if you have any signs or symptoms of: 1. wound infection (fever higher than 102.5 degrees F, redness, separation of wound, drainage, or increasing pain from the incision) 2. blood clots in legs (pain, swelling, redness and warmth in legs) 3. urinary tract infection (fever higher than 102.5 degrees F, burning upon urination or increased frequency of urination) 4. nerve problems (inability to walk on your toes or heels, numbness, loss of bowel or bladder control) 5. any other symptoms that concern you C. Please call the office at if you have any concerns or questions about your operation or recovery. D. No smoking! Smoking drastically decreases the chance of a solid fusion. E. Do not take any anti-inflammatory medications (Indocin, Advil, Motrin, Aspirin, Naprosyn, etc.) as these may inhibit the chance of a solid fusion. Tylenol is okay to take for pain. MANAGING PAIN AFTER SPINAL SURGERY 1. Narcotic medication is intended for short-term use and will be provided for surgical pain. Surgical pain usually lasts for a period of 4-6 weeks. Narcotic medication includes Percocet, Vicodin, Darvocet, Tylenol #3 or Lortab. 2. Longer-term pain is more appropriately treated with non-narcotic medication such as Tylenol ES. 3. Muscle spasm is not appropriately treated with narcotics. Muscle relaxers such as Soma, Flexeril or Skelaxin can be used along with Tylenol ES. 4. Remember that we all live with some "aches and pains". This is not unusual or uncommon after an injury or as we get older. a. Back pain is expected and may include muscle spasms for 4 to 6 weeks after surgery. The pain should gradually improve. If the pain worsens for no apparent reason, please contact the office. b. Intermittent leg pain may also be experienced and should not be concerned about unless it worsens for no apparent reason. If so, please contact the office. 5. We will provide appropriate medication within the normal guidelines of their prescribed use. We will also be very cautious and aware of potential abuse and extended duration of patients' medication needs. a. Pain medications are for your comfort and to assist with sleep and rest so that the tissue can heal. They are not provided in order to return to normal activity and should not be used through the day. To do so or worsening pain at night can result from ongoing tissue damage and development of tolerance to the prescribed medicine. 6. Please allow 2-3 days to process refills. Prescriptions will not be mailed but must be picked up at the office. FOLLOW UP VISIT: Keep your scheduled follow-up appointment. Any questions, please call the office at . Addtl [employer] Provider Instructions: I have checked a vitamin D level and this was a little low. We started supplementation and you can continue 1000IU daily at discharge. Your sodium level has been improved on repeat and would recommend staying hydrated with something with electrolytes to prevent excessive water without those which can cause low sodium and lightheadedness/dizziness. Please be cautious with tramadol use for pain control, as this can make sodium levels go low as well, and if you experience any symptoms would recommend stopping this and contacting Dr Arteaga or your PCP. Pending Studies at Discharge: No Stand-Alone Forms: My [facility], Smoking Cessation Medications and DC Order Prescriptions: New tramadol 50 mg tablet 50 mg PO Q6H PRN (Reason: pain, moderate) Qty: 30 0RF oxycodone 5 mg tablet 5 mg PO Q6H PRN (Reason: pain, severe) Qty: 30 0RF cholecalciferol (vitamin D3) [Vitamin D3] 25 mcg (1,000 unit) tablet 1,000 unit PO DAILY 30 Days Qty: 30 3RF Continued levothyroxine 25 mcg Tablet 25 mcg PO QAM rosuvastatin 5 mg Tablet 5 mg PO [id number] Label Comments: mon-wed-fri in the evening Discharge Orders: Discharge Order (Routine); Ordered 02/12/22 Ordered By: Felton Arteaga Admission Data Admit Date/Time: 02/09/22 14:21 Attending Provider: Felton Arteaga Admit Provider: Felton Arteaga Primary Care Provider: Michelle Matthew Other Providers: Elisa Carrizalse ; Al Matias
[2022-02-12] MEDS: oxyCODONE HCL IR 5 MG TAB (IMMEDIATE RELEASE) PO PRN (10:20)
== END 2022-02-12 10:58 | disposition home or self-care (01) | DRG 454 ==
LOC: ASU 10:13 → PACUINP 14:21 → 3E 17:24
DX: Z79.899 Other long term (current) drug therapy; D72.829 Elevated white blood cell count, unspecified; Z79.890 Hormone replacement therapy; T38.0X5A Adverse effect of glucocorticoids and synthetic analogues, initial encounter; E78.5 Hyperlipidemia, unspecified; E87.1 Hypo-osmolality and hyponatremia; D62 Acute posthemorrhagic anemia; M48.062 Spinal stenosis, lumbar region with neurogenic claudication; E55.9 Vitamin D deficiency, unspecified; Z88.2 Allergy status to sulfonamides; Z86.79 Personal history of other diseases of the circulatory system; E03.9 Hypothyroidism, unspecified; Z88.8 Allergy status to other drugs, medicaments and biological substances; E86.0 Dehydration; M43.16 Spondylolisthesis, lumbar region